=== PATIENT | male | born 1980 ===

== ENCOUNTER 2019-05-21 14:13 | Emergency (ER) | payer SELFPAY ==
--- NOTE | 2019-05-21 14:57 | EDM.PDOC ---
ED HPI GENERAL MEDICAL PROBLEM - General Chief Complaint: Burn Stated Complaint: FROSTBITE Time Seen by Provider: 05/21/19 14:25 Source of Information: Reports: Patient, Old Records, RN, RN Notes Reviewed History Limitations: Reports: No Limitations - History of Present Illness INITIAL COMMENTS - FREE TEXT/NARRATIVE: [facility]/o pain and numbness to the B/L great toes sustained from frostbite that occurred 2 weeks ago. Pt is a homeless with methamphetamine history, claiming he last used meth 2 weeks ago. He also had small areas of frostbite on the B/L anterior knees, but states that the knees have scabbed over. He states he cannot feel any sensation in the left great toe. The right great toe is painful. The [facility] provider reported the pt had purulent looking bulla with some dark tissue at the affected toes. Duration: Week(s): (2), Constant Location: Reports: Lower Extremity, Left, Lower Extremity, Right Quality: Reports: Ache Severity: Severe Improves with: Reports: None Worsens with: Reports: None Associated Symptoms: Reports: No Other Symptoms Bilateral Toe-[place] Pain Score (Numeric/FACES): 4 - Related Data Allergies Allergy/AdvReac Type Severity Reaction Status Date / Time No Known Allergies Allergy Verified 05/21/19 14:20 Home Meds: Home Meds Cyclobenzaprine [Flexeril] 5 mg PO DAILY 05/21/19 [History] Past Medical History Psychiatric History: Reports: Addiction - Past Surgical History GI Surgical History: Reports: Hernia Repair/Other, Other (See Below) Male Surgical History: Reports: Lithotripsy (ESWL) Social & Family History - Family History Family Medical History: Unobtainable - Tobacco Use Smoking Status *Q: Current Every Day Smoker Years of Tobacco use: 3 Packs/Tins Daily: 0.1 - Caffeine Use Caffeine Use: Reports: Soda - Recreational Drug Use Recreational Drug Use: Yes Recreational Drug Type: Reports: Marijuana/Hashish Recreational Drug Use Frequency: Daily - Living Situation & Occupation Living situation: Reports: Other (Homeless ) Occupation: Unemployed Review of Systems - Review of Systems Review Of Systems: Comprehensive ROS is negative, except as noted in HPI. ED EXAM, GENERAL - Physical Exam Exam: See Below Exam Limited By: No Limitations General Appearance: Alert, WD/WN, No Apparent Distress Ears: Normal External Exam, Hearing Grossly Normal Nose: Normal Inspection Throat/Mouth: Normal Lips, Normal Voice, No Airway Compromise Head: Atraumatic, Normocephalic Respiratory/Chest: No Respiratory Distress, Lungs Clear, Normal Breath Sounds, No Accessory Muscle Use, Chest Non-Tender Cardiovascular: Normal Peripheral Pulses, Regular Rate, Rhythm Peripheral Pulses: 3+: Posterior Tibial (L), Posterior Tibial (R), Dorsalis Pedis (L), Dorsalis Pedis (R) Extremities: No Pedal Edema, Normal Capillary Refill (B/L toes 2-5), Other (B/L 1st toes with subacute frostbite with purulent bulla, and necrotic appearing tissue.) Neurological: Alert, Oriented, CN II-XII Intact, Other (No sensation to touch of left great toe.) Psychiatric: Normal Affect, Normal Mood Course - Vital Signs Last Recorded V/S: Last Vital Signs Temp 97.6 F 05/21/19 14:20 Pulse 82 05/21/19 14:20 Resp 18 05/21/19 14:20 BP 149/86 H 05/21/19 14:20 Pulse Ox 98 05/21/19 14:20 - Orders/Labs/Meds Labs: Laboratory Tests 05/21/19 05/21/19 05/21/19 Range/Units 14:40 14:40 14:40 WBC 9.2 (5.0-10.0) 10^3/uL RBC 4.59 L (4.6-6.2) 10^6/uL Hgb 13.1 L (14.0-18.0) g/dL Hct 40.3 (40.0-54.0) % MCV 87.8 (80-100) fL MCH 28.5 (27.0-34.0) pg MCHC 32.5 L (33.0-35.0) g/dL Plt Count 428 (150-450) 10^3/uL Neut % (Auto) 77.1 H (42.2-75.2) % Lymph % (Auto) 14.3 L (20.5-50.1) % [place] % (Auto) 7.1 (2-8) % Eos % (Auto) 1.1 (1.0-3.0) % Baso % (Auto) 0.4 (0.0-1.0) % Sodium 139 (135-145) mmol/L Potassium 3.9 (3.6-5.0) mmol/L Chloride 104 (101-111) mmol/L Carbon Dioxide 27.0 (21.0-31.0) mmol/L Anion Gap 11.9 BUN 16 (7-18) mg/dL Creatinine 0.8 (0.6-1.3) mg/dL Est Cr Clr Drug Dosing 134.72 mL/min Estimated GFR (MDRD) > 60 BUN/Creatinine Ratio 20.00 Glucose 77 (74-105) mg/dL Lactic Acid 1.9 (0.5-2.0) mmol/L Calcium 8.6 (8.4-10.2) mg/dl Total Bilirubin 0.4 (0.2-1.0) mg/dL AST 20 (10-42) IU/L ALT 22 (10-60) IU/L Alkaline Phosphatase 50 (42-121) IU/L C-Reactive Protein (0.0-1.3) mg/dL Total Protein 6.5 L (6.7-8.2) g/dl Albumin 3.5 (3.2-5.5) g/dl Globulin 3.0 Albumin/Globulin Ratio 1.17 05/21/19 Range/Units 14:40 WBC (5.0-10.0) 10^3/uL RBC (4.6-6.2) 10^6/uL Hgb (14.0-18.0) g/dL Hct (40.0-54.0) % MCV (80-100) fL MCH (27.0-34.0) pg MCHC (33.0-35.0) g/dL Plt Count (150-450) 10^3/uL Neut % (Auto) (42.2-75.2) % Lymph % (Auto) (20.5-50.1) % [place] % (Auto) (2-8) % Eos % (Auto) (1.0-3.0) % Baso % (Auto) (0.0-1.0) % Sodium (135-145) mmol/L Potassium (3.6-5.0) mmol/L Chloride (101-111) mmol/L Carbon Dioxide (21.0-31.0) mmol/L Anion Gap BUN (7-18) mg/dL Creatinine (0.6-1.3) mg/dL Est Cr Clr Drug Dosing mL/min Estimated GFR (MDRD) BUN/Creatinine Ratio Glucose (74-105) mg/dL Lactic Acid (0.5-2.0) mmol/L Calcium (8.4-10.2) mg/dl Total Bilirubin (0.2-1.0) mg/dL AST (10-42) IU/L ALT (10-60) IU/L Alkaline Phosphatase (42-121) IU/L C-Reactive Protein 0.8 (0.0-1.3) mg/dL Total Protein (6.7-8.2) g/dl Albumin (3.2-5.5) g/dl Globulin Albumin/Globulin Ratio Meds: Medications Discontinued Medications Generic Name Dose Route Start Last Admin Trade Name Freq PRN Reason Stop Dose Admin Hydrocodone Bitart/Acetaminophen 1 tab 05/21/19 15:08 [place] 325-10 Mg PO 05/21/19 15:09 ONETIME ONE - Re-Assessments/Exams Free Text/Narrative Re-Assessment/Exam: 05/21/19 15:22 [facility] costume shop coordinator states that the [facility] does not have the services needed to care for the pt, but will authorize transfer and admission to [facility] in [place]. Dr. Loya accepts the pt as a direct admit by ground ambulance transfer. Departure - Departure Time of Disposition: 15:24 Disposition: DC/Tfer to Acute Hospital 02 Condition: Fair, Undetermined Clinical Impression: Frostbite of both great toes, Homeless single person - Discharge Information *PRESCRIPTION DRUG MONITORING PROGRAM REVIEWED*: Not Applicable *COPY OF PRESCRIPTION DRUG MONITORING REPORT IN PATIENT [place]AN[place]: Not Applicable Forms: ED Department Discharge, Interfacility Transfer EMTALA Sepsis Event Note - Evaluation Sepsis Screening Result: No Definite Risk - Focused Exam Vital Signs: Vital Signs Temp Pulse Resp BP Pulse Ox 05/21/19 14:20 97.6 F 82 18 149/86 H 98 Date Exam was Performed: 05/21/19 Time Exam was Performed: 15:12
[2019-05-21 15:07] LABS: ANION GAP 11.9; CHLORIDE,CL 104 mmol/L (101-111); SODIUM,NA 139 mmol/L (135-145)
[2019-05-21] MEDS ORDERED: Acetaminophen/HYDROcodone 325-10 MG Tab PO ONE (15:08)
== END 2019-05-21 16:00 ==
LOC: DL.ED 14:13
DX: T33.832A Superficial frostbite of left toe(s), initial encounter (principal); T33.831A Superficial frostbite of right toe(s), initial encounter; F17.210 Nicotine dependence, cigarettes, uncomplicated; Z59.0 Homelessness; X31.XXXA Exposure to excessive natural cold, initial encounter
CPT/HCPCS: 36415; 80053; 83605; 85025; 86140; 99284; A9270